=== PATIENT | female | born 1995 | race Caucasian/White ===

== ENCOUNTER 2021-10-06 04:16 | Emergency (ER) | payer OTHER ==
[~2021-10-06 04:16] MED LIST: AMOXICILLIN500 MG PO; BACTRIM DS 8001 TA1 PO; HYCODAN,HYDROME10 ML PO; PYRIDIUM200 M1 PO; ROBITUSSIN100 MG/5 M PO
== END 2021-10-06 04:36 | disposition home or self-care (01) ==
LOC: ED 04:16
DX: H66.92 Otitis media, unspecified, left ear (principal)

== ENCOUNTER → 2022-05-12 | Outpatient (CLI) | payer OTHER | END | disposition home or self-care (01) | LOC: LAB 16:27 | PROVIDERS: ATTEND Nurse Practitioner | DX: Z34.90 Encounter for supervision of normal pregnancy, unspecified, unspecified trimester (principal) ==

== ENCOUNTER → 2022-07-29 | Outpatient (CLI) | payer OTHER | END | disposition home or self-care (01) | LOC: RESCLI 09:24 | PROVIDERS: ATTEND Emergency Medicine | DX: Z00.00 Encounter for general adult medical examination without abnormal findings (principal); Z79.899 Other long term (current) drug therapy; Z88.8 Allergy status to other drugs, medicaments and biological substances; Z98.890 Other specified postprocedural states ==

== ENCOUNTER → 2022-09-22 | Outpatient (CLI) | payer OTHER ==
[2022-09-22 16:27] LABS: BILIRUBIN Negative (Negative); BLOOD 2+ (Negative); CLARITY Clear (Clear); COLOR Yellow (Yellow); GLUCOSE Negative (Negative); KETONE Negative (Negative); LEUKO ESTERASE Negative (Negative); NITRITE Negative (Negative); SPECIFIC GRAVITY 1.025 (1.001-1.030)
[2022-09-22 16:44] LABS: MUCOUS 2+; RBC 21-30 rbc/hpf (0-2)
== END | disposition home or self-care (01) ==
LOC: LAB 13:50
PROVIDERS: ATTEND Nurse Practitioner Family
DX: R30.0 Dysuria (principal)

== ENCOUNTER 2022-10-27 16:58 | Emergency (ER) | payer OTHER ==
[~2022-10-27] VITALS: Ht 170.1 cm; Wt 71.2 kg
[2022-10-27] MEDS ORDERED: PRENATAL VITAM1 EAC3 PO (17:48)
== END 2022-10-27 18:47 | disposition home or self-care (01) ==
LOC: ED 16:58
DX: Z34.93 Encounter for supervision of normal pregnancy, unspecified, third trimester (principal); Z88.2 Allergy status to sulfonamides; Z88.8 Allergy status to other drugs, medicaments and biological substances; Z3A.28 28 weeks gestation of pregnancy

== ENCOUNTER → 2022-12-02 | Outpatient (CLI) | payer OTHER ==
[~2022-12-02] MED LIST changes: +PRENATAL VITAM1 EAC3 PO
[2022-12-02 14:13] LABS: BASO % 0.3 % (0.0-1.0); EOS # 0.1 10*3/uL (0.0-0.4); EOS % 0.5 % (1.0-4.0); HEMATOCRIT 29.6 % (37.0-47.0); LYMPH # 1.5 10*3/uL (1.3-4.4); MEAN CELL VOLUME 85.3 fl (81.0-99.0); MEAN CORPUSCULAR HGB 29.1 pg (27.0-31.0); MEAN CORPUSCULAR HGB CONC 34.1 g/dl (33.0-37.0); MEAN PLATELET VOLUME 9.3 fl (9.6-12.3); MONO # 0.7 10*3/uL (0.1-1.0); MONO % 6.6 % (3.0-9.0); NEUT # 7.6 10*3/uL (2.3-7.9); NEUT % 77.1 % (47.0-73.0); PLATELET COUNT AUTOMATED 239 10*3/uL (130-400); RED BLOOD COUNT 3.47 10*6/uL (4.10-5.10); RED CELL DISTRI WIDTH 13.2 % (0-14.5); WHITE BLOOD COUNT 9.8 10*3/uL (4.8-10.8)
[2022-12-02 15:04] LABS: ALKALINE PHOSPHATASE 113 U/L (46-116); BUN 7 mg/dl (9-23); CHLORIDE 107 mmol/L (98-107); POTASSIUM 3.5 mmol/L (3.4-5.1); SGPT/ALT 8 U/L (10-49); TOTAL PROTEIN 6.7 gm/dL (6.0-8.0)
== END | disposition home or self-care (01) ==
LOC: LAB 13:43
PROVIDERS: ATTEND Nurse Practitioner Family
DX: N18.9 Chronic kidney disease, unspecified (principal); D50.9 Iron deficiency anemia, unspecified; R53.83 Other fatigue